=== PATIENT | female | born 1960 | race American Indian/Alaskan Native ===

== ENCOUNTER 2019-09-01 10:17 | Outpatient (CLI) | payer BC ==
[2019-09-01 10:46] LABS: Hematocrit 40.4 % (30.3-42.9); Hemoglobin 13.4 gm/dl (10.1-14.3)
[2019-09-01 10:49] LABS: Mean Corpuscular HGB Conc 33 % (30-34); Mean Corpuscular Volume 94 fl (79-97); Platelet Count 298 K/mm3 (140-440); Red Blood Count 4.32 M/mm3 (3.65-5.03)
[2019-09-01 11:07] LABS: Erythrocyte Sedimentation Rate 46 mm/Hr (0-20)
[2019-09-01 11:14] LABS: Alanine Aminotransferase 33 units/L (7-56); Albumin 4.8 g/dL (3.9-5); BUN/Creatinine Ratio 16; Blood Urea Nitrogen 11 mg/dL (7-17); Calcium 10.3 mg/dL (8.4-10.2); Hemolysis Index 0
[2019-09-06 12:37] LABS: ANA Screen, IFA Negative (Negative)
== END 2019-09-01 10:18 | disposition home or self-care (01) ==
LOC: LAB 10:17
PROVIDERS: ATTEND Specialist
DX: G45.9 Transient cerebral ischemic attack, unspecified (principal)
CPT/HCPCS: 36415; 80053; 82607; 83036; 83921; 84443; 85027; 85652; 86038; 86592